=== PATIENT | female | born 1990 | race American Indian/Alaskan Native ===

== ENCOUNTER 2016-09-06 20:06 | Emergency (ER) | payer OTHER ==
--- NOTE | 2016-09-06 20:12 | OBHP ---
Datetime: 09/06/2016 20:06 IP Adm Impression: , intrauterine ; No Active Labor IP Chief Complaint Other: cramping and spotting Admit Comment, IP Provider: at 31weeks came with c/o pressure and spotting seen yesterday night , and one in the day time. constant pressure,no ctxs, vb, lof,=fm. h/o uti in preg. obhx 1 x 28wee still born, 1 x sab, 1 x ta pmh denies med pnv all nkda psh denies soch a/p at 31+weks r/o uti, r/o pt laor ua npo/ivf cont candelario and efm cont close observation Pelvic Type - PN: Adequate Extremities - PN: Normal Abdomen - PN: Normal Back - PN: Normal Breast - PN: Not Done Lungs - PN: Normal Heart - PN: Normal Thyroid - PN: Not Done Neurologic - PN: Normal HEENT - PN: Normal General - PN: Normal FHR - Baseline A Provider: 130 Contraction Comments Provider: none Comments, ACOG Physical Exam: gravid,non tender ext no edema,no calf ten se closed, no blood ve closed ext no edema,no calf ten EGA AdmitDate IP: 33.3 Vital Signs Provider: Reviewed; Within Normal Limits IP Chief Complaint: Maternal discomfort NICHD Variability Prov Fetus A: Moderate 6-25bpm Dilatation, Provider: 0 Effacement, Provider: 0 Station, Provider: -3 Genitourinary Exam: Normal DTRs - PN: Normal
[2016-09-06 20:15] VITALS: BMI 41.4
[2016-09-06] MEDS ORDERED: Lactated Ringer's 1,000 ML IV SCH (20:15)
[2016-09-06 20:44] LABS: RBC URINE 7 /hpf (0-3); URINE BACTERIA OCC (<OCC); URINE BILIRUBIN NEGATIVE (NEGATIVE); URINE BLOOD NEGATIVE (NEGATIVE); URINE COLOR Yellow (YELLOW); URINE GLUCOSE (UA) NORMAL (Normal); URINE KETONE TRACE mg/dL (NEGATIVE); URINE LEUKOCYTE ESTERASE NEG Leu/uL (Negative); URINE PROTEIN 1+ mg/dL (NEGATIVE); URINE UROBILINOGEN NORMAL mg/dL (0.2-1.0); WBC URINE 5 /hpf (0-5)
--- NOTE | 2016-09-06 20:55 | OBHP ---
Datetime: 09/06/2016 20:53 Admit Comment, IP Provider: pt was seen at bed side. feels good toco no ctxs ua 1=pr plan dc home 24 hr urine pr collectoion po hyration f/u with dr clifford on thursday FHR - Baseline A Provider: 130 Contraction Comments Provider: none Vital Signs Provider: Reviewed; Within Normal Limits NICHD Variability Prov Fetus A: Moderate 6-25bpm NICHD Accel Fetus A IP Provider: [id number] FHR Category Provider Fetus A: Category I Datetime: 09/06/2016 20:06 EGA AdmitDate IP: 33.3
--- NOTE | 2016-09-06 20:56 | OBDCSUM ---
Datetime: 09/06/2016 20:54 Discharged to, Provider: Home Follow up at, Provider: padmini=/09/09 Follow up in weeks, Provider: dr clifford Disch Activity Restrictions: Minimize stair-climbing; No sexual activity; Nothing in vagina - Interc ourse, tampons, douche Discharge Comment, Provider: wy home 24 hr urine pr collectoion po hyration f/u with dr clifford on thursday Discharge Diagnosis Prov Other: 33weeks nst pelvic pressure
== END 2016-09-06 21:01 | disposition home or self-care (01) ==
LOC: C.EROB 20:06
DX: O26.853 Spotting complicating pregnancy, third trimester (principal); Z3A.31 31 weeks gestation of pregnancy
CPT/HCPCS: 81001; 99283; J7120